=== PATIENT | male | born 1990 ===

== ENCOUNTER 2022-05-08 23:55 | Emergency (ER) | payer SELFPAY ==
[2022-05-09 00:11] VITALS: BP 152/97
[2022-05-09 00:45] LABS: Basophils % (Auto) 0.5 % (0.0-1.8); Eosinophils # (Auto) 0.5 K/mm3 (0.0-0.4); Eosinophils % (Auto) 8.5 % (0.0-4.3); Hematocrit 46.4 % (35.5-45.6); Hemoglobin 14.9 gm/dl (11.8-15.2); Lymphocytes # (Auto) 1.3 K/mm3 (1.2-5.4); Lymphocytes % (Auto) 21.2 % (13.4-35.0); Mean Corpuscular HGB Conc 32 % (32-34); Mean Corpuscular Volume 91 fl (84-94); Monocytes # (Auto) 0.4 K/mm3 (0.0-0.8); Monocytes % (Auto) 5.6 % (0.0-7.3); Platelet Count 210 K/mm3 (140-440); Red Blood Count 5.08 M/mm3 (3.65-5.03); Red Cell Distribution Width 15.2 % (13.2-15.2)
[2022-05-09 01:07] LABS: Alanine Aminotransferase 12 units/L (7-56); Albumin 4.9 g/dL (3.9-5); BUN/Creatinine Ratio 10; Blood Urea Nitrogen 12 mg/dL (9-20); Calcium 9.5 mg/dL (8.4-10.2); Hemolysis Index 25
--- NOTE | 2022-05-09 01:22 | XRay Report ---
CHEST 2 VIEWS INDICATION / CLINICAL INFORMATION: Chest Pain. COMPARISON: None available. FINDINGS: SUPPORT DEVICES: None. HEART / MEDIASTINUM: Heart size and mediastinal contour appear within normal limits. LUNGS / PLEURA: No significant pulmonary or pleural abnormality. No pneumothorax. BONES: No significant osseous abnormality. ADDITIONAL FINDINGS: No significant additional findings. IMPRESSION: 1. No active cardiopulmonary disease. Signer Name: Shailesh Agee II, MD Signed: 05/09/2022 1:18 AM Workstation Name: [id number]
--- NOTE | 2022-05-10 13:18 | Electrocardiograph Report ---
[facility] Test Date: 2022-05-09 Test Time: 00:17:01 Pat Name: CHRISTIANO GAUTHIER Department: Room: Gender: M Automation Machine Operator: TECH : 1990 Requested By: TATA NICOLE Order Number: [id number] Reading MD: Mary Kate Stein Measurements Intervals [place] Rate: 77 P: 70 [place]: 162 QRS: 71 QRSD: 70 T: 53 QT: 399 QTc: 451 Interpretive Statements Sinus rhythm Probable left atrial enlargement No previous ECG available for comparison Electronically Signed On 05-10-2022 13:18:08 EDT by Mary Kate Stein
== END 2022-05-09 04:05 | disposition left against medical advice (07) ==
LOC: ED 23:55
DX: R07.89 Other chest pain (principal); Z53.21 Procedure and treatment not carried out due to patient leaving prior to being seen by health care provider
CPT/HCPCS: 36415; 71046; 80048; 80053; 84484; 85025; 93005